=== PATIENT | female | born 1995 | race Caucasian/White ===

== ENCOUNTER 2018-06-27 14:24 | Emergency (ER) | payer BC ==
[~2018-06-27] VITALS: Ht 172.7 cm; Wt 77.3 kg
[2018-06-27 14:33] VITALS: TEMP 97.3
[2018-06-27] MEDS ORDERED: CLEOCIN HCL300 MG PO (16:22)
[2018-06-27] MEDS ORDERED: ZOFRAN ODT4 MG PO (16:22)
[2018-06-27] MEDS ORDERED: DIFLUCAN150 MG PO (16:22)
[2018-06-27] MEDS ORDERED: DOXYCYCLINE 10100 MG PO (16:22)
[2018-06-27 17:18] VITALS: BP 122/70; PULSE 78
== END 2018-06-27 17:22 | disposition home or self-care (01) ==
LOC: COL.ER 14:24
DX: S61.411A Laceration without foreign body of right hand, initial encounter (principal); Z88.0 Allergy status to penicillin; Z88.1 Allergy status to other antibiotic agents; W54.0XXA Bitten by dog, initial encounter; Y92.009 Unspecified place in unspecified non-institutional (private) residence as the place of occurrence of the external cause
CPT/HCPCS: J1885